=== PATIENT | female | born 1950 | race Caucasian/White ===

== ENCOUNTER → 2016-05-03 | Day surgery (SDC) | payer MEDICARE ==
[~2016-05-03] MED LIST: ACETAMINOPHEN/HYDROcodone 325 MG/5 MG TAB ONE; AMLO5TAB22 PO; BUPIVACAINE/EPINEPHRINE 0.25% 50 ML VIAL ONE; CALTTAB PO; CYMB60CA PO; EZET10 PO; FISH1000 PO; LACTATED RINGER'S 1000 ML INJ 1,000 ML ONE; LISI-357 PO; MIDAZOLAM HCL 2 MG/2 ML VIAL ONE; ONDANSETRON HCL 4 MG/2 ML VIAL IV PUSH ONE; PROPOFOL 100 MG/10 ML INJ IV ONE; PROT40TA PO; SYNT88TA PO; TAB-TAB PO; TOPR50TA PO; ZOCO40TA PO
--- NOTE | 2016-05-03 13:22 | TN ---
cc: LARA KAISER M.D. DATE OF SURGERY: 05/03/2016 PREOPERATIVE DIAGNOSIS 1. Subcutaneous soft tissue mass x2, 2 cm and 3 cm, right thigh. 2. Soft tissue, 4 cm, left leg. POSTOPERATIVE DIAGNOSIS 1. Subcutaneous soft tissue mass x2, 2 cm and 3 cm, right thigh. 2. Soft tissue, 4 cm, left leg. 3. Probable lipomas. PROCEDURE PERFORMED 1. Excision soft tissue mass x2, right thigh, 2 cm and 3 cm. 2. Excision soft tissue mass, left leg, 4 cm. SURGEON Lara Kaiser ANESTHESIA TIVA with local. COMPLICATIONS None. INDICATION FOR PROCEDURE Ms. Spence is a pleasant 66-year-old female who noticed some painful subcutaneous masses. She had two on her right thigh just above the knee and one on her left leg just below the knee. She was seen and evaluated in the office. She requested excision. The risks and benefits of excision was discussed with her and she was agreeable. DETAILS OF PROCEDURE The patient was identified, brought to the operating room and placed supine on the operating table. After adequate IV sedation was achieved the bilateral lower extremities were prepped and draped in a standard surgical fashion. All masses had been marked in the preoperative holding area by myself and the patient. Attention was first directed to the 3 cm mass on the right thigh. 0.25% Marcaine was injected around the mass. A transverse incision was made. Dissection was carried down to subcutaneous tissue identifying an encapsulated fatty mass which was dissected from surrounding tissue and excised in toto. It was sent as a right thigh mass. The wound was irrigated with normal saline solution. The wound was then injected with additional local anesthetic and closed in two layers using 3-0 and 4-0 Vicryl. Next, attention was directed to the 2 cm mass in the right side. 0.25% Marcaine was injected. A transverse incision was made. The subcutaneous tissue was dissected with blunt dissection and an encapsulated fatty mass was identified and excised. The wound was then irrigated with normal saline solution and closed in two layers using 3-0 and 4-0 Vicryl. Attention was now direct to the left leg. The left leg had more of a diffuse sessile type fatty mass. A transverse incision was made after anesthetizing the skin and subcutaneous tissue with 0.25% Marcaine. The mass was dissected circumferentially using blunt finger dissection. The mass was freed up and excised in toto, and sent to pathology labeled left leg mass. This mass measured about 4 cm in diameter. The wound was then irrigated normal saline solution and closed in two layers using 3-0 and 4-0 Vicryl. Sterile dressings were applied. The patient was awakened and brought to Recovery in stable condition. MD ALE Mcdaniel/BECK /11:44 AM /1:10 PM
== END | disposition home or self-care (01) ==
LOC: ESDC 08:36
PROVIDERS: ATTEND Surgery Trauma Surgery
DX: D17.23 Benign lipomatous neoplasm of skin and subcutaneous tissue of right leg (principal); R22.42 Localized swelling, mass and lump, left lower limb; D17.24 Benign lipomatous neoplasm of skin and subcutaneous tissue of left leg
CPT/HCPCS: 00400; 27327; 27337; 88305; J2250; J2405; J3010; J7120; 88304

== ENCOUNTER → 2017-08-08 | Outpatient (CLI) | payer MEDICARE | LOC: CLAB 10:17 | DX: R07.9 Chest pain, unspecified (principal) | CPT/HCPCS: 36415; 85379 ==

== ENCOUNTER 2018-02-08 20:32 | Inpatient (IN) ==
[2018-02-08] MEDS ORDERED: Morphine Inj 4 MG/ML Vial IV.PUSH ONE ×2 (21:29→22:56)
[2018-02-08] MEDS ORDERED: Sod Chloride 0.9% Inj 1,000 ML IV.CONT SCH (21:30)
--- NOTE | 2018-02-08 21:52 | ED ---
HPI General Chief Complaint: GI Bleed Stated Complaint: Rectal Bleeding/ lower abd pain x 5 hr Time Seen by Provider: 02/08/18 21:21 Source: patient Mode of arrival: ambulatory Limitations: no limitations History of Present Illness HPI narrative: The patient is a 67-year-old female who presents to the emergency department via private vehicle for lower abdominal pain. The patient developed abdominal pain earlier today at approximately 3:30 PM. The abdominal pain is located in left lower quadrant, radiates to the suprapubic region, and is associated with an episode of dark blood within the loose stool. The patient denies taking any anticoagulants and denies any upper abdominal pain. The patient does note mild nausea but denies any vomiting. The patient denies any fever, chills, or sweats. The patient does have a history of previous hysterectomy, denies any history of diverticulitis or colitis. Symptoms are moderate. There are no current alleviating factors. Pain is exacerbated by palpation. MD complaint: Reports abdominal pain Onset (ago): hour(s) Pain Consistency: constant Location: Reports LLQ Severity: moderate Severity scale (1-10): 7 Quality: Reports aching and sharp Radiation: Reports suprapubic Migration to: Reports suprapubic Relieving factors: nothing Exacerbating factors: nothing Associated symptoms: Reports nausea and hematochezia Related Data Patient : No Home Medications Medication Instructions Recorded Confirmed aspirin [Aspir-Low] 81 mg PO DAILY 11/16/17 02/08/18 bethanechol chloride 12.5 mg PO QID 11/16/17 02/08/18 ezetimibe [Zetia] 10 mg PO QPM 11/16/17 02/08/18 liothyronine [Cytomel] 10 mcg PO DAILY 11/16/17 02/08/18 lisinopril 40 mg PO DAILY 11/16/17 02/08/18 metoprolol succinate [Toprol XL] 25 mg PO QPM 11/16/17 02/08/18 simvastatin 40 mg PO QPM 11/16/17 02/08/18 dexlansoprazole [Dexilant] 40 mg PO DAILY 02/08/18 02/08/18 levofloxacin [Levaquin] 500 mg PO DAILY 02/08/18 02/08/18 levothyroxine [Tirosint] 100 mcg PO DAILY 02/08/18 02/08/18 Previous Rx's Medication Instructions Recorded benzonatate [Tessalon Perles] 200 mg PO TID PRN #20 cap 11/16/17 Allergies Allergy/AdvReac Type Severity Reaction Status Date / Time No Known Allergies Allergy Verified 02/08/18 20:37 Review of Systems ROS: all other systems reviewed are negative [facility] Medical History Medical History Hx of hysterectomy (Acute) History of hypertension (Acute) Hx of gastroesophageal reflux (GERD) (Acute) Hx of thyroid disease (Acute) Surgical History Surgical History History of bilateral knee replacement (Acute) Hx of cholecystectomy (Acute) Hx of hand surgery (Acute) History of resection of stomach (Acute) Social History Social History Substance History: No History of Abuse Second Hand Smoke Exposure: No Smoking Status: Never smoker How Often Do You Have a Drink Containing Alcohol: Monthly or less Recent Travel in [facility] within the Last 8 Weeks: No Recent Out of Country Travel within the Last 8 Weeks: No Immunization History Tetanus Immunization: Unsure Exam Narrative Exam Narrative: GENERAL: Awake, alert, pleasant 67-year-old female who appears her stated age and appears in mild discomfort. SKIN: Focused skin assessment warm/dry. HEAD: Atraumatic. Normocephalic. EYES: Pupils equal and round. No scleral icterus. No injection or drainage. ENT: No nasal bleeding or discharge. Mucous membranes pink and moist. NECK: Trachea midline. No JVD. CARDIOVASCULAR: Regular rate and rhythm. No murmur appreciated. RESPIRATORY: No accessory muscle use. Clear to auscultation. Breath sounds equal bilaterally. GASTROINTESTINAL: Abdomen soft, tender to palpation left lower quadrant and suprapubic. No guarding or rigidity. Rectal: Exam was performed in the presence of a female nurse. No gross blood. Guaiac positive. MUSCULOSKELETAL: No obvious deformities. No clubbing. No cyanosis. No edema. NEUROLOGICAL: Awake and alert. No obvious cranial nerve deficits. Motor grossly within normal limits. Normal speech. PSYCHIATRIC: Appropriate mood and affect; insight and judgment normal. Procedures Hemaprompt Stool Procedural Steps Taken: specimen placed in appropriate test area, developer placed on specimen and control areas and controls appropriately positive and negative Hemaprompt Stool Result: positive Course Initial Documented Vital Signs Temperature 98.6 F 02/08/18 20:35 Pulse Rate 86 02/08/18 20:35 Respiratory Rate 18 02/08/18 20:35 Blood Pressure 208/102 H 02/08/18 20:35 Pulse Oximetry 97 02/08/18 20:35 Last Documented Vital Signs Temperature 98.6 F 02/08/18 20:35 Pulse Rate 82 02/08/18 22:13 Respiratory Rate 16 02/08/18 22:13 Blood Pressure 191/96 H 02/08/18 22:13 Pulse Oximetry 97 02/08/18 22:13 Medical Decision Making MDM Narrative Medical decision making narrative: IV was established, labs are drawn and sent, and the patient was placed on cardiac telemetry monitoring and continuous pulse oximetry monitoring. Rectal exam was performed in the presence of a female nurse, guaiac positive but no gross blood. CBC was sent to lab. CT of the abdomen and pelvis was performed to evaluate for possible diverticulitis. The patient's white count was 21.7. The patient's pain returned, therefore, she was administered a second dose of morphine. CT of the abdomen and pelvis reveals descending colitis, patient does have bloody stool, therefore, blood culture and WBC smear and stool culture were ordered. The patient was covered with Cipro and Flagyl. The patient's primary physician is Dr. Stephens, and her glassware defect repairer is Dr. Mortensen. [facility] Medical Screen Exam Complete: Yes Emergency Medical Condition: Yes Differential Diagnosis Differential Diagnosis: Differential diagnosis includes diverticulitis, diverticulosis, pancreatitis, colitis, upper GI bleed, lower GI bleed, internal hemorrhoids, coagulopathy, perforated viscus, intra-abdominal abscess. Lab Data Result diagrams: 02/08/18 21:46 02/08/18 21:46 Lab Results 02/08/18 02/08/18 02/08/18 Range/Units 21:46 21:46 21:46 CBC w Diff Slide review pending WBC 21.7 H (4.0-11.0) th/mm3 RBC 5.09 (4.00-5.30) mil/mm3 Hgb 15.0 (11.6-15.3) gm/dL Hct 43.4 (35.0-46.0) % MCV 85.3 (80.0-100.0) fL MCH 29.4 (27.0-34.0) pg MCHC 34.5 (32.0-36.0) % RDW 14.3 (11.6-17.2) % Plt Count 289 (150-450) th/mm3 MPV 11.2 H (7.0-11.0) fL Neut % (Auto) 82.3 H (16.0-70.0) % Lymph % (Auto) 10.2 (9.0-44.0) % Bond % (Auto) 4.7 (0.0-8.0) % Eos % (Auto) 0.1 (0.0-4.0) % Baso % (Auto) 2.7 H (0.0-2.0) % Neut # (Auto) 17.9 H (1.8-7.7) th/mm3 Lymph # (Auto) 2.2 (1.0-4.8) th/mm3 Bond # (Auto) 1.0 H (0.0-0.9) th/mm3 Eos # (Auto) 0.0 (0.0-0.4) th/mm3 Baso # (Auto) 0.6 H (0.0-0.2) th/mm3 WBC Differential . Diff Scan Auto diff confirmed Differential Comment . Platelet Estimate Normal (Normal) Platelet Morphology Enlarged H (Normal) PT 10.5 (9.8-11.6) sec INR 1.0 Ratio APTT 33.7 H (23.4-31.7) sec Sodium 137 (136-145) meq/L Potassium 3.8 (3.5-5.1) meq/L Chloride 103 (98-107) meq/L Carbon Dioxide 25.4 (21.0-32.0) meq/L Anion Gap 9 (5-15) meq/L BUN 14 (7-18) mg/dL Creatinine 0.84 (0.50-1.00) mg/dL Estimated GFR 67 L (>89) mL/min Random Glucose 105 (74-106) mg/dL Lactic Acid (0.4-2.0) mmol/L Calcium 8.2 L (8.5-10.1) mg/dL Magnesium 2.1 (1.5-2.5) mg/dL Total Bilirubin 0.3 (0.2-1.0) mg/dL AST 12 L (15-37) U/L ALT 18 (10-53) U/L Alkaline Phosphatase 83 (45-117) U/L Total Protein 7.1 (6.4-8.2) g/dL Albumin 3.4 (3.4-5.0) g/dL Lipase 67 L (73-393) U/L Urine Color (Yellw/Straw) Urine Clarity (Clear) Urine pH (5.0-8.5) Ur Specific [place] (1.002-1.035) Urine Protein (Neg-Trace) mg/dL Urine Glucose (UA) (Negative) mg/dL Urine Ketones (Negative) mg/dL Urine Occult Blood (Negative) Urine Nitrate (Negative) Urine Bilirubin (Negative) Urine Urobilinogen (Less than 2) mg/dL Ur Leukocyte Esterase (Negative) Urine RBC (0-3) /hpf Urine WBC (0-5) /hpf Ur Squamous Epith Cells (0-5) /hpf Urine Bacteria (None) /hpf Urine Mucus (Occasional) /lpf Micro UA Comment Ur Microscopic Review Urine Culture Comments 02/08/18 02/08/18 Range/Units 21:46 22:02 CBC w Diff WBC (4.0-11.0) th/mm3 RBC (4.00-5.30) mil/mm3 Hgb (11.6-15.3) gm/dL Hct (35.0-46.0) % MCV (80.0-100.0) fL MCH (27.0-34.0) pg MCHC (32.0-36.0) % RDW (11.6-17.2) % Plt Count (150-450) th/mm3 MPV (7.0-11.0) fL Neut % (Auto) (16.0-70.0) % Lymph % (Auto) (9.0-44.0) % Bond % (Auto) (0.0-8.0) % Eos % (Auto) (0.0-4.0) % Baso % (Auto) (0.0-2.0) % Neut # (Auto) (1.8-7.7) th/mm3 Lymph # (Auto) (1.0-4.8) th/mm3 Bond # (Auto) (0.0-0.9) th/mm3 Eos # (Auto) (0.0-0.4) th/mm3 Baso # (Auto) (0.0-0.2) th/mm3 WBC Differential Diff Scan Differential Comment Platelet Estimate (Normal) Platelet Morphology (Normal) PT (9.8-11.6) sec INR Ratio APTT (23.4-31.7) sec Sodium (136-145) meq/L Potassium (3.5-5.1) meq/L Chloride (98-107) meq/L Carbon Dioxide (21.0-32.0) meq/L Anion Gap (5-15) meq/L BUN (7-18) mg/dL Creatinine (0.50-1.00) mg/dL Estimated GFR (>89) mL/min Random Glucose (74-106) mg/dL Lactic Acid 1.1 (0.4-2.0) mmol/L Calcium (8.5-10.1) mg/dL Magnesium (1.5-2.5) mg/dL Total Bilirubin (0.2-1.0) mg/dL AST (15-37) U/L ALT (10-53) U/L Alkaline Phosphatase (45-117) U/L Total Protein (6.4-8.2) g/dL Albumin (3.4-5.0) g/dL Lipase (73-393) U/L Urine Color Yellow (Yellw/Straw) Urine Clarity Clear (Clear) Urine pH 6.0 (5.0-8.5) Ur Specific [place] 1.020 (1.002-1.035) Urine Protein Negative (Neg-Trace) mg/dL Urine Glucose (UA) Negative (Negative) mg/dL Urine Ketones Trace H (Negative) mg/dL Urine Occult Blood Moderate H (Negative) Urine Nitrate Negative (Negative) Urine Bilirubin Negative (Negative) Urine Urobilinogen 0.2 (Less than 2) mg/dL Ur Leukocyte Esterase Negative (Negative) Urine RBC 4-15 H (0-3) /hpf Urine WBC 0-5 (0-5) /hpf Ur Squamous Epith Cells 0-5 (0-5) /hpf Urine Bacteria Few H (None) /hpf Urine Mucus Few H (Occasional) /lpf Micro UA Comment Culture not ind Ur Microscopic Review Microscopic reviewed Urine Culture Comments Culture not ind Imaging Data Radiologist's impression: Abdomen/Pelvis CT 02/08/18 21:29 CONCLUSION: Descending colon colitis. Discharge Plan Discharge Disposition Patient Disposition: 30 Still Patient Discharge Condition Condition: Stable Discharge Details Diagnosis: Colitis, GI bleed, Leukocytosis Physicians Team ED Provider: Emile Dickson Primary Care Provider: David Stephens Rxs /Orders / Referrals /Forms Prescriptions: No Action liothyronine [Cytomel] 5 mcg Tablet 10 mcg PO DAILY RF: 0 aspirin [Aspir-Low] 81 mg Tablet,Delayed Release (Dr/Ec) 81 mg PO DAILY RF: 0 simvastatin 40 mg Tablet 40 mg PO QPM RF: 0 bethanechol chloride 25 mg Tablet 12.5 mg PO QID RF: 0 metoprolol succinate [Toprol XL] 25 mg Tablet Extended Release 24 Hr 25 mg PO QPM RF: 0 lisinopril 40 mg Tablet 40 mg PO DAILY RF: 0 ezetimibe [Zetia] 10 mg Tablet 10 mg PO QPM RF: 0 benzonatate [Tessalon Perles] 100 mg capsule 200 mg PO TID PRN (Reason: cough) Qty: 20 RF: 0 levofloxacin [Levaquin] 500 mg Tablet 500 mg PO DAILY RF: 0 dexlansoprazole [Dexilant] 60 mg Capsule,Biphase Delayed Releas 40 mg PO DAILY RF: 0 levothyroxine [Tirosint] 100 mcg Capsule 100 mcg PO DAILY RF: 0 Status ED Status: Pending Admission
[2018-02-08 22:14] LABS: Chloride 103 meq/L (98-107); Potassium 3.8 meq/L (3.5-5.1); Sodium 137 meq/L (136-145)
[2018-02-08 22:17] LABS: Albumin 3.4 g/dL (3.4-5.0)
[2018-02-08 22:18] LABS: Anion Gap 9 meq/L (5-15); Baso # (Auto) 0.6 th/mm3 (0.0-0.2); Baso % (Auto) 2.7 % (0.0-2.0); Blood Urea Nitrogen 14 mg/dL (7-18); Calcium 8.2 mg/dL (8.5-10.1); Carbon Dioxide 25.4 meq/L (21.0-32.0); Eos % (Auto) 0.1 % (0.0-4.0); Glucose,Random 105 mg/dL (74-106); Hematocrit 43.4 % (35.0-46.0); Lymph # (Auto) 2.2 th/mm3 (1.0-4.8); Lymph % (Auto) 10.2 % (9.0-44.0); Magnesium 2.1 mg/dL (1.5-2.5); Mean Corpuscular HGB Conc 34.5 % (32.0-36.0); Mean Corpuscular Hemoglobin 29.4 pg (27.0-34.0); Mean Corpuscular Volume 85.3 fL (80.0-100.0); Mean Platelet Volume 11.2 fL (7.0-11.0); Mono % (Auto) 4.7 % (0.0-8.0); Neut # (Auto) 17.9 th/mm3 (1.8-7.7); Neut % (Auto) 82.3 % (16.0-70.0); Platelet Count 289 th/mm3 (150-450); Red Blood Count 5.09 mil/mm3 (4.00-5.30); Red Cell Distribution Width 14.3 % (11.6-17.2); White Blood Count 21.7 th/mm3 (4.0-11.0)
[2018-02-08 22:19] LABS: Activated Partial Thrombo Time 33.7 sec (23.4-31.7); Lipase 67 U/L (73-393); Prothrombin Time 10.5 sec (9.8-11.6)
[2018-02-08 22:20] LABS: Bilirubin,Urine Negative (Negative); Clarity,Urine Clear (Clear); Color,Urine Yellow (Yellw/Straw); Glucose,Urine (UA) Negative (Negative); Leukocyte Esterase,Urine Negative (Negative); Nitrite,Urine Negative (Negative); Urobilinogen,Urine 0.2 mg/dL (Less than 2)
[2018-02-08 22:21] LABS: Alanine Aminotransferase 18 U/L (10-53); Aspartate Aminotransferase 12 U/L (15-37); Glomerular Filtration Rate 67 mL/min (>89)
[2018-02-08 22:23] LABS: Total Protein 7.1 g/dL (6.4-8.2)
[2018-02-08 22:24] LABS: Alkaline Phosphatase 83 U/L (45-117)
[2018-02-08 22:26] LABS: Bacteria,Urine Few /hpf; Mucus,Urine Few /lpf (Occasional); Squamous Epithelial Cell,Urine 0-5 /hpf (0-5); WBC,Urine 0-5 /hpf (0-5)
[2018-02-08 22:43] LABS: Platelet Estimate Normal (Normal)
--- NOTE | 2018-02-08 23:09 | CT ---
EXAM DATE: 02/08/2018 11:02 PM EST AGE/SEX: 67 years / Female INDICATIONS: Abdominal pain. Rectal bleeding. CLINICAL DATA: This is the patient's initial encounter. Patient reports that signs and symptoms have been present for 1 day and indicates a pain score of 10/10. MEDICAL/SURGICAL HISTORY: Hypertension. Gastroesophageal reflux disease. Hysterectomy. Colon resection. Cholecystectomy. RADIATION DOSE: 13.36 CTDI (mGy) COMPARISON: POI, CT ABDOMEN AND PELVIS W AND W/O CONTRAST, 07/12/2017. . TECHNIQUE: Multiple contiguous axial images were obtained through the abdomen. Images were obtained using multiple row detector helical technique. Using automated exposure control and adjustment of the mA and/or kV according to patient size, radiation dose was kept as low as reasonably achievable to o btain optimal diagnostic quality images. DICOM format image data is available electronically for rev iew and comparison. FINDINGS: Lower Lungs: The visualized lower lungs are clear. Liver: The liver has a homogeneous density without space-occupying lesion. There is no dilation of th e biliary tree. Spleen: Homogeneous density surgical clips from previous cholecystectomy. Focal hypodensity along th e posterior surface of the spleen is less conspicuous without contrast. Without enlargement. Pancreas: Unremarkable without mass or calcification. Kidneys: Normal in size and shape. No evidence of mass or hydronephrosis. Adrenal Glands: Unremarkable. Aorta: The aorta and proximal iliac vessels are grossly unremarkable without aneurysmal dilation. Bowel/Mesentery: There are occasional colonic diverticula. There is diffuse mild concentric wall thi ckening involving the distal colon from about the splenic flexure down, resolved by the distal sigmoi d. There is no abnormal dilatation of bowel. The small bowel is unremarkable. Mild pericolic inflamma tory changes are present on the left Abdominal Wall: Intact. Retroperitoneum: No evidence of adenopathy in the retrocrural, para-aortic, or deep pelvic regions. Bladder: Contours are smooth. Reproductive Organs: Uterus surgically absent. No evidence of pelvic mass or free fluid.. Inguinal: The inguinal region is unremarkable without evidence of adenopathy. Bony Structures: Unremarkable. CONCLUSION: Descending colon colitis. Electronically signed by: Timothy Dubois MD 02/08/2018 11:07 PM EST
[2018-02-08] MEDS ORDERED: Ciprofloxacin 400 MG/200 ML 400 MG/200 ML PIGGYBACK IV.SIG ONE (23:11)
[2018-02-08] MEDS ORDERED: Bisacodyl 10 MG Supp RECTAL PRN (23:39)
[2018-02-09] MEDS: Sod Chloride 0.9% Inj 1,000 ML IV.CONT SCH ×3 (01:42→21:06)
[2018-02-09] MEDS: Morphine Sulfate Inj 2 MG/ML Vial IV.PUSH PRN ×6 (04:03→21:06)
[2018-02-09 08:01] LABS: Baso # (Auto) 0.3 th/mm3 (0.0-0.2); Baso % (Auto) 1.7 % (0.0-2.0); Eos % (Auto) 0.1 % (0.0-4.0); Hematocrit 41.5 % (35.0-46.0); Hemoglobin 14.3 gm/dL (11.6-15.3); Lymph # (Auto) 2.5 th/mm3 (1.0-4.8); Lymph % (Auto) 13.7 % (9.0-44.0); Mean Corpuscular HGB Conc 34.4 % (32.0-36.0); Mean Corpuscular Hemoglobin 29.6 pg (27.0-34.0); Mean Corpuscular Volume 85.9 fL (80.0-100.0); Mean Platelet Volume 10.5 fL (7.0-11.0); Mono # (Auto) 1.2 th/mm3 (0.0-0.9); Mono % (Auto) 6.2 % (0.0-8.0); Neut # (Auto) 14.6 th/mm3 (1.8-7.7); Neut % (Auto) 78.3 % (16.0-70.0); Platelet Count 256 th/mm3 (150-450); Red Blood Count 4.83 mil/mm3 (4.00-5.30); Red Cell Distribution Width 14.7 % (11.6-17.2); White Blood Count 18.6 th/mm3 (4.0-11.0)
[2018-02-09 08:09] LABS: Chloride 106 meq/L (98-107); Potassium 3.8 meq/L (3.5-5.1); Sodium 140 meq/L (136-145)
[2018-02-09 08:13] LABS: Albumin 2.9 g/dL (3.4-5.0); Anion Gap 6 meq/L (5-15); Blood Urea Nitrogen 10 mg/dL (7-18); Calcium 7.7 mg/dL (8.5-10.1); Glucose,Random 108 mg/dL (74-106)
[2018-02-09 08:16] LABS: Alanine Aminotransferase 15 U/L (10-53); Aspartate Aminotransferase 9 U/L (15-37)
[2018-02-09 08:17] LABS: Glomerular Filtration Rate Greater Than 89 mL/min (>89)
[2018-02-09 08:19] LABS: Alkaline Phosphatase 69 U/L (45-117)
--- NOTE | 2018-02-09 08:55 | P.HP ---
History of Present Illness Primary Care Physician: David Stephens MD Chief Complaint: GI bleed History of Present Illness: This is a 67-year-old female patient with a known medical history of hypertension, hypothyroidism, hyperlipidemia presented to the ED with complaints of abdominal pain as well as dark bloody stools. Patient states that the abdominal pain started around 330 yesterday afternoon the pain was located in her left lower quadrant radiated to her suprapubic region, she does admit to one episode of dark blood in her stools. She rates the pain a 5 out of 10 at its worst on pain scale and is alleviated with pain medication. She does admit to nausea as well as vomiting. Denies any coffee-ground emesis or bright red blood in stool. Denies any recent fevers, chills, headache, dysuria. Patient does state she was placed on Levaquin by her primary care physician for an upper respiratory infection which has overall improved per patient report. She does admit to undergoing a colonoscopy last year which was reportedly unremarkable. She does follow with Dr. Mortensen, gastroenterology. At the time of assessment patient states her pain has improved, she does admits to a large bloody bowel movement this morning. H&H stable. Denies any NSAID use. - Diagnosis (1) Colitis (2) GI bleed (3) Leukocytosis Inpatient Certification: I certify that the inpatient services were ordered in accordance with Medicare regulations governing the order. This includes certification that hospital inpatient services are reasonable and necessary and in the case of services not specified as inpatient-only under 42 CFR 419.22(n), that they are appropriately provided as inpatient services in accordance to with the 2-midnight benchmark under 43 CFR 412.3(e) Estimated Total Length of Stay (Days): 2 Plans for Post Hospital Care: Not yet determined Review of Systems All other systems reviewed negative except as stated in HPI PMFSH - History History Provided By: Patient - Medical History Medical History: Medical History (Last Reviewed 02/09/18 @ 11:22 by Rebeca Pelletier) Hx of hysterectomy History of hypertension Hx of gastroesophageal reflux (GERD) Hx of thyroid disease - Surgical History Surgical History: Surgical History (Last Reviewed 02/09/18 @ 11:22 by Rebeca Pelletier) History of bilateral knee replacement Hx of cholecystectomy Hx of hand surgery History of resection of stomach - Family History Family History: Family History (Last Updated 02/09/18 @ 11:22 by Rebeca Pelletier) Other Family history non-contributory - Social History I have reviewed the patient's Social History: Yes - Tobacco History Second Hand Smoke Exposure: No Tobacco Use In Past 30 Days: No Smoking Status: Never smoker - Alcohol History How Often Do You Have a Drink Containing Alcohol: Never - Substance Use History Substance History: No History of Abuse - Travel History Recent Travel in the [place] Within the Last 8 Weeks: No Recent Travel Out of the Country Within the Last 8 Weeks: No - Immunization History Tetanus Immunization: <5 Years Hx Influenza Vaccine This Season: Yes Medications and Allergies Active Medications: Active Medications Al Hydroxide/Mg Hydroxide (Milk Of Magnesia Liq) 30 ml PO Q12H PRN PRN Reason: Mild Constipation Bisacodyl (Dulcolax Supp) 10 mg RECTAL DAILY PRN PRN Reason: SEVERE CONSITIPATION Enalaprilat (Vasotec Inj) 1.25 mg IV.PUSH Q6H PRN PRN Reason: SBP>160, DBP>90 Last Admin: 02/09/18 01:50 Dose: 1.25 mg Ciprofloxacin/Dextrose (Cipro 400 Mg/200 Ml Inj) 400 mg in 200 mls @ 200 mls/ hr IV.SIG Q12H SETH Metronidazole/Sodium Chloride (Flagyl 500 Mg Inj) 100 mls @ 100 mls/hr IV.SIG Q8H SETH Sodium Chloride (Ns Inj) 1,000 mls @ 100 mls/hr IV.CONT .Q10H SETH Last Admin: 02/09/18 01:42 Dose: 100 mls/hr Lactulose (Lactulose Liq) 30 ml PO DAILY PRN PRN Reason: SEVERE CONSITIPATION Metoprolol Succinate (Toprol Xl) 25 mg PO QPM SETH Morphine Sulfate (Morphine Inj) 2 mg IV.PUSH Q3H PRN PRN Reason: ain 1 to 10 Last Admin: 02/09/18 06:40 Dose: 2 mg Ondansetron HCl (Zofran Inj) 4 mg IV.PUSH Q6H PRN PRN Reason: NAUSEA OR VOMITING Pantoprazole Sodium (Protonix Inj) 40 mg IV.PUSH Q12H SETH Sennosides (Senokot) 17.2 mg PO Q12H PRN PRN Reason: Moderate Constipation Sodium Chloride (Ns Flush) 2 ml IV.FLUSH PRN PRN PRN Reason: FLUSH AFTER USING IV ACCESS Sodium Chloride (Ns Flush) 2 ml IV.FLUSH PRN PRN PRN Reason: FLUSH AFTER USING IV ACCESS Allergies Allergy/AdvReac Type Severity Reaction Status Date / Time No Known Allergies Allergy Verified 02/08/18 20:37 Home Medications Medication Instructions Recorded Confirmed Type aspirin [Aspir-Low] 81 mg PO DAILY 11/16/17 02/08/18 History bethanechol chloride 12.5 mg PO QID 11/16/17 02/08/18 History ezetimibe [Zetia] 10 mg PO QPM 11/16/17 02/08/18 History liothyronine [Cytomel] 10 mcg PO DAILY 11/16/17 02/08/18 History lisinopril 40 mg PO DAILY 11/16/17 02/08/18 History metoprolol succinate [Toprol XL] 25 mg PO QPM 11/16/17 02/08/18 History simvastatin 40 mg PO QPM 11/16/17 02/08/18 History dexlansoprazole [Dexilant] 40 mg PO DAILY 02/08/18 02/08/18 History levofloxacin [Levaquin] 500 mg PO DAILY 02/08/18 02/08/18 History levothyroxine [Tirosint] 100 mcg PO DAILY 02/08/18 02/08/18 History Exam Vital signs: Vital Signs 02/08/18 20:35 02/08/18 21:35 02/08/18 22:13 Temperature 98.6 F Pulse Rate 86 73 82 Respiratory Rate 18 18 16 Blood Pressure 208/102 H 201/90 H 191/96 H Pulse Oximetry 97 99 97 02/08/18 23:41 02/09/18 00:50 02/09/18 04:30 Temperature 98.3 F 98.6 F Pulse Rate 86 72 71 Respiratory Rate 16 20 20 Blood Pressure 193/89 H 184/73 H 184/80 H Pulse Oximetry 98 98 97 Intake & Output 02/08/18 02/09/18 02/09/18 18:59 06:59 18:59 Intake Total 580 / 580 Balance 580 / 580 Weight 75.6 kg Intake: IV 550 / 550 NS Inj 1,000 ML @ 125 mls/hr IV 250 / 250 .CONT .Q8H SETH Rx#:[id number] Cipro 400 MG/200 ML Inj 400 mg 200 / 200 In 200 ml @ 200 mls/hr IV.SIG ONCE ONE Rx#:[id number] Flagyl 500 MG Inj 100 ML @ 100 100 / 100 mls/hr IV.SIG ONCE ONE Rx#: [id number] Oral Other: # Voids 0 Date of Last Bowel Movement 02/09/18 Weight On Admission 74.7 kg Narrative: GENERAL: Well-developed, well-nourished patient in [facility]. SKIN: Warm and dry. No rash. HEAD: Normocephalic. Atraumatic. EYES: Pupils equal and round. No scleral icterus. No injection or drainage. ENT: No nasal bleeding or discharge. Mucous membranes pink and moist. NECK: Supple. Trachea midline. CARDIOVASCULAR: Regular rate and rhythm. S1, S2 noted. No murmur appreciated. RESPIRATORY: No accessory muscle use. Clear to auscultation. Breath sounds equal bilaterally. GASTROINTESTINAL: Abdomen soft, nondistended. Normoactive bowel sounds x4. Mild tenderness to bilateral lower quadrant to palpation. MUSCULOSKELETAL: No obvious deformities. Extremities without clubbing, cyanosis , or edema. NEUROLOGICAL: Awake and alert. No obvious cranial nerve deficits. Motor grossly within normal limits. 5/5 muscle strength in bilateral upper and lower extremities. Normal speech. PSYCHIATRIC: Appropriate mood and affect; insight and judgment normal. Results - Labs CBC & Chem 7: 02/09/18 07:35 02/09/18 07:35 Labs: Laboratory Results - last 24 hr 02/08/18 02/08/18 02/08/18 21:46 21:46 21:46 CBC w Diff Slide review pending WBC 21.7 H RBC 5.09 Hgb 15.0 Hct 43.4 MCV 85.3 MCH 29.4 MCHC 34.5 RDW 14.3 Plt Count 289 MPV 11.2 H Neut % (Auto) 82.3 H Lymph % (Auto) 10.2 Howell % (Auto) 4.7 Eos % (Auto) 0.1 Baso % (Auto) 2.7 H Neut # (Auto) 17.9 H Lymph # (Auto) 2.2 Howell # (Auto) 1.0 H Eos # (Auto) 0.0 Baso # (Auto) 0.6 H WBC Differential . Diff Scan Auto diff confirmed Differential Comment . Platelet Estimate Normal Platelet Morphology Enlarged H PT 10.5 INR 1.0 APTT 33.7 H Sodium 137 Potassium 3.8 Chloride 103 Carbon Dioxide 25.4 Anion Gap 9 BUN 14 Creatinine 0.84 Estimated GFR 67 L Random Glucose 105 Lactic Acid Calcium 8.2 L Magnesium 2.1 Total Bilirubin 0.3 AST 12 L ALT 18 Alkaline Phosphatase 83 Total Protein 7.1 Albumin 3.4 Lipase 67 L Urine Color Urine Clarity Urine pH Ur Specific Frederick Urine Protein Urine Glucose (UA) Urine Ketones Urine Occult Blood Urine Nitrate Urine Bilirubin Urine Urobilinogen Ur Leukocyte Esterase Urine RBC Urine WBC Ur Squamous Epith Cells Urine Bacteria Urine Mucus Micro UA Comment Ur Microscopic Review Urine Culture Comments 02/08/18 02/08/18 02/09/18 21:46 22:02 07:35 CBC w Diff Auto diff final WBC 18.6 H RBC 4.83 Hgb 14.3 Hct 41.5 MCV 85.9 MCH 29.6 MCHC 34.4 RDW 14.7 Plt Count 256 MPV 10.5 Neut % (Auto) 78.3 H Lymph % (Auto) 13.7 Howell % (Auto) 6.2 Eos % (Auto) 0.1 Baso % (Auto) 1.7 Neut # (Auto) 14.6 H Lymph # (Auto) 2.5 Howell # (Auto) 1.2 H Eos # (Auto) 0.0 Baso # (Auto) 0.3 H WBC Differential . Diff Scan Differential Comment . Platelet Estimate Platelet Morphology PT INR APTT Sodium Potassium Chloride Carbon Dioxide Anion Gap BUN Creatinine Estimated GFR Random Glucose Lactic Acid 1.1 Calcium Magnesium Total Bilirubin AST ALT Alkaline Phosphatase Total Protein Albumin Lipase Urine Color Yellow Urine Clarity Clear Urine pH 6.0 Ur Specific Frederick 1.020 Urine Protein Negative Urine Glucose (UA) Negative Urine Ketones Trace H Urine Occult Blood Moderate H Urine Nitrate Negative Urine Bilirubin Negative Urine Urobilinogen 0.2 Ur Leukocyte Esterase Negative Urine RBC 4-15 H Urine WBC 0-5 Ur Squamous Epith Cells 0-5 Urine Bacteria Few H Urine Mucus Few H Micro UA Comment Culture not ind Ur Microscopic Review Microscopic reviewed Urine Culture Comments Culture not ind 02/09/18 07:35 CBC w Diff WBC RBC Hgb Hct MCV MCH MCHC RDW Plt Count MPV Neut % (Auto) Lymph % (Auto) Howell % (Auto) Eos % (Auto) Baso % (Auto) Neut # (Auto) Lymph # (Auto) Howell # (Auto) Eos # (Auto) Baso # (Auto) WBC Differential Diff Scan Differential Comment Platelet Estimate Platelet Morphology PT INR APTT Sodium 140 Potassium 3.8 Chloride 106 Carbon Dioxide 28.0 Anion Gap 6 BUN 10 Creatinine 0.59 Estimated GFR Greater than 89 Random Glucose 108 H Lactic Acid Calcium 7.7 L Magnesium Total Bilirubin 0.6 AST 9 L ALT 15 Alkaline Phosphatase 69 Total Protein 6.0 L D Albumin 2.9 L Lipase Urine Color Urine Clarity Urine pH Ur Specific Frederick Urine Protein Urine Glucose (UA) Urine Ketones Urine Occult Blood Urine Nitrate Urine Bilirubin Urine Urobilinogen Ur Leukocyte Esterase Urine RBC Urine WBC Ur Squamous Epith Cells Urine Bacteria Urine Mucus Micro UA Comment Ur Microscopic Review Urine Culture Comments - Imaging Impressions Abdomen/Pelvis CT 02/08/18 21:29 CONCLUSION: Descending colon colitis. Caprini VTE Risk Assessment Caprini VTE Risk Assessment: Moderate/High Risk (score >= 2) Caprini Risk Assessment Model: Point Value = 1 Point Value = 2 Point Value = 3 Point Value = 5 Age 41-60 Minor surgery BMI > 25 kg/m2 Swollen legs Varicose veins or History of unexplained or recurrent spontaneous Oral contraceptives or hormone replacement Sepsis (< 1 month) Serious lung disease, including pneumonia (< 1 month) Abnormal pulmonary function Acute myocardial infarction Congestive heart failure (< 1 month) History of inflammatory bowel disease Medical patient at bed rest Age 61-74 Arthroscopic surgery Major open surgery (> 45 min) Laparoscopic surgery (> 45 min) Malignancy Confined to bed (> 72 hours) Immobilizing plaster cast Central venous access Age >= 75 History of VTE Family history of VTE Factor V Leiden Prothrombin [id number] Lupus anticoagulant Anticardiolipin antibodies Elevated serum homocysteine Heparin-induced thrombocytopenia Other congenital or acquired thrombophilia Stroke (< 1 month) Elective arthroplasty Hip, pelvis, or leg fracture Acute spinal cord injury (< 1 month) Prophylaxis Regimen: Total Risk Factor Score Risk Level Prophylaxis Regimen 0-1 Low Early ambulation 2 Moderate Order ONE of the following: *Sequential Compression Device (SCD) *Heparin 5000 units SQ BID 3-4 Higher Order ONE of the following medications: *Heparin 5000 units SQ TID *Enoxaparin/Lovenox 40 mg SQ daily (WT < 150 kg, CrCl > 30 mL/min) *Enoxaparin/Lovenox 30 mg SQ daily (WT < 150 kg, CrCl > 10-29 mL/min) *Enoxaparin/Lovenox 30 mg SQ BID (WT < 150 kg, CrCl > 30 mL/min) AND/OR *Sequential Compression Device (SCD) 5 or more Highest Order ONE of the following medications: *Heparin 5000 units SQ TID (Preferred with Epidurals) *Enoxaparin/Lovenox 40 mg SQ daily (WT < 150 kg, CrCl > 30 mL/min) *Enoxaparin/Lovenox 30 mg SQ daily (WT < 150 kg, CrCl > 10-29 mL/min) *Enoxaparin/Lovenox 30 mg SQ BID (WT < 150 kg, CrCl > 30 mL/min) AND *Sequential Compression Device (SCD) Assessment and Plan - Assessment (1) Colitis Code(s): K52.9 - Noninfective gastroenteritis and colitis, unspecified Status : Acute (2) GI bleed Code(s): K92.2 - Gastrointestinal hemorrhage, unspecified Status: Acute (3) Leukocytosis Code(s): D72.829 - Elevated white blood cell count, unspecified Status: Acute - Plan This is a 67-year-old female patient with: Acute colitis Leukocytosis suspect secondary to above -Presented with abdominal pain, nausea and vomiting and black stools. -Hemoccult stool positive. No anemia on presentation. -Abdomen/pelvis CT reviewed showing descending colon colitis. -Patient did present with white blood cell count of 21,000, today 18,000. Follow CBC. -Pain control with IV morphine as needed. -Continue IV Cipro and Flagyl. -Continue to monitor CBC. -Gastroenterology consulted, input and recommendations pending. Patient had one large bloody bowel movement today. -Hemoglobin currently stable. Will trend H&H's. Follow -Continue Protonix IV. -Supportive care. Hypertension, chronic: Will continue home medications. Patient presented with significant high blood pressure with systolic in the 200s. Continue to monitor trends. Hypothyroidism, chronic: Will continue home levothyroxine DVT prophylaxis: SCDs. Hold chemical prophylaxis for acute bleeding. (2) GI bleed Qualifiers: GI bleed type/associated pathology: unspecified gastrointestinal hemorrhage type Qualified Code(s): K92.2 - Gastrointestinal hemorrhage, unspecified (3) Leukocytosis Qualifiers: Leukocytosis type: unspecified Qualified Code(s): D72.829 - Elevated white blood cell count, unspecified
[2018-02-09] MEDS: Lisinopril 20 MG Tablet PO SCH (09:42)
[2018-02-09] MEDS: Levothyroxine 100 MCG Tablet PO SCH (09:43)
[2018-02-09] MEDS: Pantoprazole Inj 40 MG Vial IV.PUSH SCH ×2 (09:43→21:04)
[2018-02-09] MEDS: Liothyronine 5 MCG Tablet PO SCH ×2 (10:28→11:49)
[2018-02-09] MEDS: Ciprofloxacin 400 MG/200 ML 400 MG/200 ML PIGGYBACK IV.SIG SCH (11:49)
[2018-02-09 12:00] LABS: Hematocrit 41.2 % (35.0-46.0); Hemoglobin 14.1 gm/dL (11.6-15.3)
[2018-02-09 16:38] LABS: Hemoglobin 14.4 gm/dL (11.6-15.3)
--- NOTE | 2018-02-09 16:54 | MB ---
cc: Abraham Mortensen MD, Harry MD Ombogo,David iRchardson MD DATE: 02/09/2018 HISTORY OF PRESENT ILLNESS: The patient is a 67-year-old female I was asked to see her for further evaluation and management of bloody diarrhea. Earlier this week, she had developed upper respiratory symptoms and was given Levaquin. Yesterday, she started experiencing nausea in the afternoon with some lower abdominal cramping. She passed a normal bowel movement and passed some diarrhea with blood then passed grossly bloody diarrhea multiple times. The nausea subsided. The cramping persists. Bleeding seems to have slowed down. She has never had a problem like this in the past. She has a history of microscopic colitis. Her last colonoscopy was performed in July 2015. She has no personal or family history of colorectal neoplasia. She was only started on the Levaquin recently. She has been on no new medications with respect to antihypertensive medications or diuretics or medications that may have decreased her pulse. PAST MEDICAL HISTORY: Her medical history is otherwise significant for hypertension, gastroesophageal reflux, hypothyroidism. PAST SURGICAL HISTORY: Hysterectomy, knee replacements bilaterally, cholecystectomy, hand surgery, partial gastric resection. FAMILY HISTORY: The father had of pneumonia. REVIEW OF SYSTEMS: She has had dysphagia and was actually scheduled for endoscopy to treat a stricture, but she had an ulceration at the time, so no dilation was performed. She was to have it done this week, but with the recent respiratory infection, she postponed and we will have to reschedule that exam. She has a history of reflux disease. She has post-gastric surgery gastroparesis. She has had no recent history of seizures or strokes. No headaches. No vision difficulties. No palpitations, no chest pains. No fever or chills. No urinary complaints. No unexplained weight loss. No rashes or joint pains. PHYSICAL EXAMINATION: VITAL SIGNS: Her weight is 75.6 kg. Temperature 97, pulse 76, respiratory rate 16, blood pressure 176/79. GENERAL: She is alert. She is oriented x3. She is in good spirits. HEENT: Anicteric. Extraocular motions are intact. I appreciate no submandibular, cervical, supraclavicular, axillary or epitrochlear adenopathy. LUNGS: Clear to auscultation. HEART: Regular rate and rhythm. No gross murmur or gallop. ABDOMEN: Good bowel sounds with no appreciable bruit. The abdomen is soft and there is tenderness mostly across the lower abdomen, especially in the left lower quadrant. No masses or hepatosplenomegaly noted. EXTREMITIES: No pedal edema, Dupuytren contractures or palmar erythema. LABORATORY STUDIES: On admission yesterday, white count 21.7, hemoglobin 15, platelets 289, 82% neutrophils. Today's white count 18.6, hemoglobin 14.3, then 14.1, platelets 256. INR 1.0. Sodium 140, potassium 3.8, BUN 10, creatinine 0.59. Lactic acid 1.1, calcium 7.7. Liver enzymes normal. Albumin 2.9, CT scan reveals thickening from the distal transverse colon to the sigmoid colon consistent with colitis of unclear etiology. IMPRESSION: Hemorrhagic colitis, possibly related to an infection such as salmonella or Shigella or Yersinia or Campylobacter, or E. coli 0157:H7. The distribution suggest ischemic colitis, but she has no predisposing risk factors. PLAN: Continue IV fluids and the Cipro that has been started. The bloody rectal discharge can be sent for culture. I will follow closely and we can coordinate outpatient endoscopy with esophageal dilation when convenient. We will start a clear liquid diet today. Abraham Mortensen MD /ct , 04:30 PM , 04:40 PM
[2018-02-10] MEDS: Ciprofloxacin 400 MG/200 ML 400 MG/200 ML PIGGYBACK IV.SIG SCH ×2 (01:21→11:00)
[2018-02-10] MEDS: Morphine Sulfate Inj 2 MG/ML Vial IV.PUSH PRN ×4 (01:27→12:59)
[2018-02-10] MEDS: Sod Chloride 0.9% Inj 1,000 ML IV.CONT SCH ×2 (06:17→17:00)
[2018-02-10] MEDS: Levothyroxine 100 MCG Tablet PO SCH (06:41)
[2018-02-10] MEDS: Pantoprazole Inj 40 MG Vial IV.PUSH SCH (09:25)
--- NOTE | 2018-02-10 09:25 | P.PNGI ---
Subjective Interval history: She feels better; much less pain. Scant blood per rectum this morning. Physical Exam Vital signs: Vital Signs 02/09/18 12:00 02/09/18 16:00 02/09/18 18:33 Temperature 97.0 F L 98.0 F Pulse Rate 76 76 Respiratory Rate 16 16 Blood Pressure 176/79 H 194/81 H 144/66 H Pulse Oximetry 98 98 02/09/18 20:00 02/10/18 00:00 02/10/18 01:28 Temperature 98.2 F 97.5 F L Pulse Rate 75 77 Respiratory Rate 20 20 18 Blood Pressure 167/71 H 142/69 H Pulse Oximetry 96 97 Intake & Output 02/09/18 02/10/18 02/10/18 18:59 06:59 18:59 Intake Total 1700 / 1700 1725 / 1725 Output Total 120 / 120 Balance 1700 / 1700 1605 / 1605 Weight 75.6 kg Intake: IV 1400 / 1400 1050 / 1050 NS Inj 1,000 ML @ 100 mls/hr IV 1000 / 1000 750 / 750 .CONT .Q10H SETH Rx#:[id number] Cipro 400 MG/200 ML Inj 400 mg 200 / 200 200 / 200 In 200 ml @ 200 mls/hr IV.SIG Q12H SETH Rx#:[id number] Flagyl 500 MG Inj 100 ML @ 100 200 / 200 100 / 100 mls/hr IV.SIG Q8H SETH Rx#: [id number] Oral 300 / 300 Oral Supplement 75 / 75 Other 600 / 600 Output: Urine 120 / 120 Other: Other Intake Source Saline Solution # Voids 3 Date of Last Bowel Movement 02/09/18 - Constitutional no acute distress - Routine HEENT Exam Eye: Present: EOMI - Routine Exam Comments: Much less lower abdominal tenderness. - Routine Neurological Exam Present: alert, oriented X3 Results - Labs CBC & Chem 7: 02/09/18 16:25 02/09/18 07:35 Laboratory Results - last 24 hr 02/09/18 02/09/18 02/09/18 11:50 16:25 16:30 Hgb 14.1 14.4 Hct 41.2 43.0 Stl C.difficile DNA Amp Negative St C. diff Tox Epid 027 Negative Microbiology 02/09/18 16:30 Stool Enteric Pathogens (PCR) - Final No enteric pathogens detected by PCR (No Salmonella sp., Shigella sp., Campylobacter sp., Yersinia enterocolitica, Vibrio sp., Norovirus, or EHEC (Shiga Toxin 1 or Shiga Toxin 2) detected. 02/08/18 23:30 Blood - Peripheral Aerobic Blood Culture - Preliminary No growth in 1 day 02/08/18 23:30 Blood - Peripheral Anaerobic Blood Culture - Preliminary No growth in 1 day 02/08/18 23:35 Blood - Peripheral Aerobic Blood Culture - Preliminary No growth in 1 day 02/08/18 23:35 Blood - Peripheral Anaerobic Blood Culture - Preliminary No growth in 1 day Assessment and Plan - Plan Acute hemorrhagic colitis; stool studies reveal no evidence of the typical bacterial pathogens that would present this way. This may still have been ischemic colitis, though she had no obvious reason for this to have developed. We'll advance her diet and change IV antibiotics to po. OK to d/c home after dinner today if she tolerates the low fiber diet. D/C on flagyl and cipro and a low fiber diet for one week. She may follow up in my office in two to three weeks.
[2018-02-10] MEDS: Lisinopril 20 MG Tablet PO SCH (09:26)
[2018-02-10] MEDS: Liothyronine 5 MCG Tablet PO SCH (09:27)
[2018-02-10] MEDS ORDERED: Ciprofloxacin 500 MG Tablet PO ONE (11:14)
[2018-02-10 11:57] VITALS: PULSE 69; RESP 17; TEMP 97.6; O2SAT 95
--- NOTE | 2018-02-10 12:01 | P.PN ---
Subjective Interval history: Follow-up for rectal bleed likely due to ischemic colitis. Patient is currently doing well. She denies any further rectal bleed bleed. Patient was evaluated by GI. Physical Exam Vital signs: Vital Signs 02/09/18 12:00 02/09/18 16:00 02/09/18 18:33 Temperature 97.0 F L 98.0 F Pulse Rate 76 76 Respiratory Rate 16 16 Blood Pressure 176/79 H 194/81 H 144/66 H Pulse Oximetry 98 98 02/09/18 20:00 02/10/18 00:00 02/10/18 01:28 Temperature 98.2 F 97.5 F L Pulse Rate 75 77 Respiratory Rate 20 20 18 Blood Pressure 167/71 H 142/69 H Pulse Oximetry 96 97 02/10/18 08:00 Temperature 98.4 F Pulse Rate 74 Respiratory Rate 16 Blood Pressure 160/72 H Pulse Oximetry 96 Intake & Output 02/09/18 02/10/18 02/10/18 18:59 06:59 18:59 Intake Total 1700 / 1700 1725 / 1725 Output Total 120 / 120 Balance 1700 / 1700 1605 / 1605 Weight 75.6 kg Intake: IV 1400 / 1400 1050 / 1050 NS Inj 1,000 ML @ 100 mls/hr IV 1000 / 1000 750 / 750 .CONT .Q10H S[facility] Rx#:[id number] Cipro 400 MG/200 ML Inj 400 mg 200 / 200 200 / 200 In 200 ml @ 200 mls/hr IV.SIG Q12H [facility] Rx#:[id number] Flagyl 500 MG Inj 100 ML @ 100 200 / 200 100 / 100 mls/hr IV.SIG Q8H [facility] Rx#: [id number] Oral 300 / 300 Oral Supplement 75 / 75 Other 600 / 600 Output: Urine 120 / 120 Other: Other Intake Source Saline Solution # Voids 3 2 Date of Last Bowel Movement 02/09/18 02/09/18 Narrative: GENERAL: Alert, oriented x3, NAD. SKIN: Warm and dry. HEAD: Normocephalic. EYES: No scleral icterus. No injection or drainage. NECK: Supple, trachea midline. No JVD or lymphadenopathy. CARDIOVASCULAR: Regular rate and rhythm without murmurs, gallops, or rubs. RESPIRATORY: Breath sounds equal bilaterally. No accessory muscle use. GASTROINTESTINAL: Abdomen soft, non-tender, nondistended. MUSCULOSKELETAL: No cyanosis, or edema. BACK: Nontender without obvious deformity. No CVA tenderness. Results - Labs CBC & Chem 7: 02/09/18 16:25 02/09/18 07:35 Laboratory Results - last 24 hr 02/09/18 02/09/18 02/09/18 11:50 16:25 16:30 Hgb 14.1 14.4 Hct 41.2 43.0 Stl C.difficile DNA Amp Negative St C. diff Tox Epid 027 Negative Microbiology 02/08/18 23:30 Blood - Peripheral Aerobic Blood Culture - Preliminary No growth in 2 days 02/08/18 23:30 Blood - Peripheral Anaerobic Blood Culture - Preliminary No growth in 2 days 02/08/18 23:35 Blood - Peripheral Aerobic Blood Culture - Preliminary No growth in 2 days 02/08/18 23:35 Blood - Peripheral Anaerobic Blood Culture - Preliminary No growth in 2 days 02/09/18 16:30 Stool Enteric Pathogens (PCR) - Final No enteric pathogens detected by PCR (No Salmonella sp., Shigella sp., Campylobacter sp., Yersinia enterocolitica, Vibrio sp., Norovirus, or EHEC (Shiga Toxin 1 or Shiga Toxin 2) detected. Assessment and Plan - Assessment (1) Colitis Code(s): K52.9 - Noninfective gastroenteritis and colitis, unspecified Status : Acute (2) GI bleed Code(s): K92.2 - Gastrointestinal hemorrhage, unspecified Status: Acute (3) Leukocytosis Code(s): D72.829 - Elevated white blood cell count, unspecified Status: Acute - Plan This is a 67-year-old female patient with a known medical history of hypertension, hypothyroidism, hyperlipidemia presented to the ED with complaints of abdominal pain as well as dark bloody stools. GI was consulted. Probable acute ischemic colitis Leukocytosis suspect secondary to above -Presented with abdominal pain, nausea and vomiting and black stools. -Hemoccult stool positive. No anemia on presentation. -Abdomen/pelvis CT reviewed showing descending colon colitis. -Pain control with IV morphine as needed. -We will switch IV Cipro and Flagyl to p.o. -Gastroenterology consulted. GI recommended advancing diet to full liquid at lunch and then regular diet at dinnertime. -Hemoglobin remains stable around 14.4 -Continue Protonix - switch from IV to PO. -IF Patient tolerates food well without any further rectal bleed AND if GI clears, we can likely discharge patient today. Hypertension, chronic Continue lisinopril 40 mg daily. Patient is also on metoprolol succinate 25 mg daily. Blood pressure remains in the 160s range. If needed, we can consider calcium channel thee. Hypothyroidism, chronic: Will continue home levothyroxine 100 mcg daily. Full code. SCDs. (2) GI bleed Qualifiers: GI bleed type/associated pathology: unspecified gastrointestinal hemorrhage type Qualified Code(s): K92.2 - Gastrointestinal hemorrhage, unspecified (3) Leukocytosis Qualifiers: Leukocytosis type: unspecified Qualified Code(s): D72.829 - Elevated white blood cell count, unspecified
[2018-02-10] MEDS ORDERED: metroNIDAZOLE 500 MG Tablet PO SCH (14:00)
[2018-02-10 18:00] VITALS: BP 158/88
[2018-02-10] MEDS ORDERED: Ciprofloxacin 500 MG Tablet PO SCH (21:00)
== END 2018-02-10 18:02 | disposition home or self-care (01) ==
LOC: PHED 20:32 → PHEDA 23:39 → PH3 02-09 00:47
PROVIDERS: ADMIT Hospitalist; ATTEND Hospitalist